=== PATIENT | female | born 1960 | race African-American/Black ===

== ENCOUNTER 2016-09-05 00:17 | Emergency (ER) | payer MEDICAID ==
[~2016-09-05] VITALS: Ht 162.6 cm; Wt 107.0 kg
[2016-09-05] MEDS ORDERED: ACETAMINOPHEN WITH CODEINE 300/30MG TABLET PO ONE (01:45)
[2016-09-05 01:52] VITALS: BP 124/80
== END 2016-09-05 02:15 | disposition home or self-care (01) ==
LOC: ER 00:57
DX: H60.91 Unspecified otitis externa, right ear (principal); I10 Essential (primary) hypertension; F17.200 Nicotine dependence, unspecified, uncomplicated; R59.1 Generalized enlarged lymph nodes
CPT/HCPCS: 99283

== ENCOUNTER 2016-12-29 13:04 | Emergency (ER) | payer BC, MEDICAID ==
[~2016-12-29] VITALS: Ht 165.1 cm; Wt 105.0 kg
[2016-12-29] MEDS ORDERED: KETOROLAC 60MG/2ML VIAL IM ONE (16:00)
[2016-12-29 18:00] VITALS: BP 152/76
== END 2016-12-29 18:20 | disposition home or self-care (01) ==
LOC: ER 15:39
DX: M11.261 Other chondrocalcinosis, right knee (principal); M25.461 Effusion, right knee; M19.90 Unspecified osteoarthritis, unspecified site; E78.00 Pure hypercholesterolemia, unspecified; I10 Essential (primary) hypertension; G47.30 Sleep apnea, unspecified; J44.9 Chronic obstructive pulmonary disease, unspecified; F17.210 Nicotine dependence, cigarettes, uncomplicated; Z98.890 Other specified postprocedural states
CPT/HCPCS: 73562; 81025; 96372; 99284; J1885; Z7610

== ENCOUNTER 2017-04-07 20:53 | Emergency (ER) | payer BC ==
[~2017-04-07] VITALS: Ht 162.6 cm; Wt 112.0 kg
[2017-04-07] MEDS ORDERED: KETOROLAC 30MG/ML VIAL IM ONE (22:15)
[2017-04-07 22:24] VITALS: BP 141/94
== END 2017-04-08 02:10 | disposition home or self-care (01) ==
LOC: ER 20:53
DX: M25.561 Pain in right knee (principal); M79.89 Other specified soft tissue disorders; I10 Essential (primary) hypertension; F17.210 Nicotine dependence, cigarettes, uncomplicated; Z87.39 Personal history of other diseases of the musculoskeletal system and connective tissue
CPT/HCPCS: 96372; 99283; J1885; L1830

== ENCOUNTER 2018-04-29 14:21 | Emergency (ER) | payer BC ==
[~2018-04-29] VITALS: Ht 165.1 cm; Wt 106.0 kg
[2018-04-29 16:13] LABS: CLARITY URINE CLOUDY (CLEAR); COLOR URINE YELLOW (YELLOW); KETONES URINE TRACE (NEGATIVE); LEUKOCYTE ESTERASE URINE 2+ (NEGATIVE); NITRITE URINE NEGATIVE (NEGATIVE); OCCULT BLOOD URINE 3+ (NEGATIVE); PH URINE 5.5 (4.5-8.0); PROTEIN URINE NEGATIVE (NEGATIVE); SPECIFIC GRAVITY URINE 1.024 (1.005-1.030); UROBILINOGEN URINE 0.2 E.U./dL (0.2-1.0)
[2018-04-30 00:53] LABS: BASOPHILS % 0.9 % (0.0-2.0); EOSINOPHILS % 2.8 % (0.0-5.0); HEMOGLOBIN. 13.7 g/dL (12.0-16.0); LYMPHOCYTES % 48.2 % (20.0-50.0); MEAN CORPUSCULAR HEMOGLOBIN 30.7 pg (28.0-32.0); MEAN CORPUSCULAR VOLUME 94.3 fL (81.0-99.0); MEAN PLATELET VOLUME 11.8 fl (7.4-10.4); MONOCYTES % 7.7 % (2.0-8.0); NEUTROPHILS % 40.4 % (40.0-76.0); PLATELET 135 x1000/uL (130-400); RED BLOOD CELL COUNT 4.46 mill/uL (4.2-5.4); RED CELL DISTRIBUTION WIDTH 14.6 % (11.6-14.6)
[2018-04-30 00:55] LABS: CHLORIDE 104 mEq/L (98-107)
[2018-04-30] MEDS ORDERED: KETOROLAC 60MG/2ML VIAL IM ONE (02:00)
[2018-04-30] MEDS ORDERED: ONDANSETRON 4MG ODT PO ONE (02:45)
[2018-04-30 03:29] VITALS: BP 149/84
== END 2018-04-30 03:31 | disposition home or self-care (01) ==
LOC: ER 14:21
DX: R10.13 Epigastric pain (principal); M54.30 Sciatica, unspecified side; K57.30 Diverticulosis of large intestine without perforation or abscess without bleeding; N20.0 Calculus of kidney; I10 Essential (primary) hypertension; F17.210 Nicotine dependence, cigarettes, uncomplicated
CPT/HCPCS: 36415; 74176; 80053; 81003; 83690; 85025; 96372; 99285; J1885; Q0162